=== PATIENT | female | born 1965 | race Two or more races ===

== ENCOUNTER → 2017-07-01 | Outpatient (CLI) | payer OTHER ==
--- NOTE | 2017-07-01 14:18 | MM ---
Reason for exam: additional evaluation requested from prior study. Last mammogram was performed 1 year and 1 month ago. History: Benign MG stereo VAD BX addl RT of the right breast, June 10, 2016. Benign MG stereo VAD BX RT of the right breast, June 10, 2016. Benign US biopsy breast VAD RT of the right breast, June 10, 2016. Benign excisional biopsy of the right breast, August 2009. Benign US right guided mammotome of the right breast, August 15, 2008. Physical Findings: Nurse did not find any significant physical abnormalities on exam. MG Diagnostic Mammo w CAD JAVIER Bilateral CC and MLO view(s) were taken. Prior study comparison: June 10, 2016, right breast MG diagnostic mammo RT wo CAD. May 02, 2016, bilateral MG diagnostic mammo w CAD JAVIER. January 20, 2015, bilateral MG diagnostic mammo w CAD JAVIER. Finding: There are typically benign round calcifications in both breasts. Previous mammotome biopsy in the right breast x 4. There is a chronic nodularity in the left breast. There is no dominant lesion. These results were verbally communicated with the patient and result sheet given to the patient on 07/01/17. ASSESSMENT: Benign, BI-RAD 2 RECOMMENDATION: Routine screening mammogram of both breasts in 1 year. Manage on a clinical basis with regard to pain.
== END ==
LOC: RADMAMWWP 13:09
PROVIDERS: ATTEND Family Medicine
DX: R92.8 Other abnormal and inconclusive findings on diagnostic imaging of breast (principal)

== ENCOUNTER 2018-01-17 18:16 | Emergency (ER) | payer OTHER ==
[2018-01-17 18:32] VITALS: BP 157/83; PULSE 71; RESP 16; TEMP 97.9
--- NOTE | 2018-01-17 20:14 | US ---
EXAMINATION TYPE: US venous doppler duplex LE RT DATE OF EXAM: 01/17/2018 7:59 PM COMPARISON: NONE CLINICAL HISTORY: Pain. Right leg pain, right knee extending into lateral lower leg SIDE PERFORMED: right TECHNIQUE: The lower extremity deep venous system is examined utilizing real time linear array sonog felton with graded compression, doppler sonography and color-flow sonography. VESSELS IMAGED: External Iliac Vein (EIV) Common Femoral Vein Deep Femoral Vein Greater Saphenous Vein * Femoral Vein Popliteal Vein Small Saphenous Vein * Proximal Calf Veins (* superficial vessels) FINDINGS: Grayscale, color doppler, spectral doppler imaging performed of the deep veins of the lower extremities. There is normal flow, compressibility, vascular waveforms. IMPRESSION: NEGATIVE FOR DVT, RIGHT LOWER EXTREMITY.
--- NOTE | 2018-01-17 20:25 | XR ---
PROCEDURE: XR knee complete RT 3 views DATE AND TIME: 01/17/2018 7:35 PM REFERRING PHYSICIAN: Tonny Ryan CLINICAL INDICATION: PHH, Pain TECHNIQUE: Department protocol. COMPARISON: None FINDINGS: There is no fracture or malalignment. The soft tissues are unremarkable. IMPRESSION: NO ACUTE PROCESS.
--- NOTE | 2018-01-17 20:51 | ED ---
General Adult HPI - General Chief complaint: Extremity Problem,Nontraumatic Stated complaint: Leg pain Time Seen by Provider: 01/17/18 18:47 Source: patient, RN notes reviewed Mode of arrival: ambulatory Limitations: no limitations - History of Present Illness Initial comments: 52-year-old female presents to the emergency department for a chief complaint of right leg pain 2 weeks. Patient states she did not injure it. Patient states she has been to her primary care provider for this one week ago and he thought it was related to vein problems. Patient does have compression stockings at home that she does not wear. Patient states the pain was worse tonight. Patient states the pain is behind her knee and calf. Patient states she does have a history of arthritis in that knee. Patient denies pain in the foot or hip. Patient has no other complaints at this time including shortness of breath, chest pain, abdominal pain, nausea or vomiting, headache, or visual changes. - Related Data Home Medications Medication Instructions Recorded Confirmed Butalb/Acetaminophen/Caffeine 1 tab PO DAILY 04/13/14 04/20/14 [Fioricet 50-325-40 mg Tablet] Lisinopril [Zestril] 10 mg PO DAILY 04/13/14 04/20/14 Simvastatin [Zocor] 40 mg PO HS 04/13/14 04/20/14 Penicillin V Potassium [Pen Vee K] 500 mg PO QID 04/20/14 04/20/14 Previous Rx's Medication Instructions Recorded Acetaminophen [Tylenol] 500 mg PO Q4-6H PRN #20 tab 01/17/18 Ibuprofen [Motrin] 600 mg PO Q8HR PRN #20 tab 01/17/18 Allergies Allergy/AdvReac Type Severity Reaction Status Date / Time sumatriptan [From Imitrex] Allergy Severe Unknown Verified 01/17/18 18:32 sumatriptan succinate Allergy Severe Unknown Verified 01/17/18 18:32 [From Imitrex] topiramate [From Topamax] Allergy Severe Unknown Verified 01/17/18 18:32 Review of Systems ROS Statement: Those systems with pertinent positive or pertinent negative responses have been documented in the HPI. ROS Other: All systems not noted in ROS Statement are negative. Past Medical History Past Medical History: Fibromyalgia, Hyperlipidemia, Hypertension Additional Past Medical History / Comment(s): MIGRAINES, SCOLIOSIS, History of Any Multi-Drug Resistant Organisms: None Reported Past Surgical History: No Surgical Hx Reported Additional Past Surgical History / Comment(s): dental surgery 04-15-14 (implants) Past Anesthesia/Blood Transfusion Reactions: No Reported Reaction Past Psychological History: No Psychological Hx Reported Smoking Status: Never smoker Past Alcohol Use History: Occasional Past Drug Use History: None Reported - Past Family History Father Family Medical History: Cancer General Exam Limitations: no limitations General appearance: alert, in no apparent distress Head exam: Present: atraumatic, normocephalic, normal inspection Neck exam: Present: normal inspection, full ROM. Absent: tenderness, meningismus, lymphadenopathy Respiratory exam: Present: normal lung sounds bilaterally. Absent: respiratory distress, wheezes, rales, rhonchi, stridor Cardiovascular Exam: Present: regular rate, normal rhythm, normal heart sounds. Absent: systolic murmur, diastolic murmur, rubs, gallop, clicks Extremities exam: Present: full ROM (Full range of motion of the right lower extremity including the hip and knee and ankle.), tenderness (Tenderness in the lateral posterior right knee. Tenderness in the posterior right calf.), normal capillary refill (Normal capillary refill less than 2 seconds in the right lower extremity. Pedal pulse and PT pulse 2+), other (No Washington's cyst palpated behind the right knee. No lacerations or skin defects. No signs of infection in the right lower extremity.). Absent: joint swelling (No swelling noted in the posterior right knee or right calf.), calf tenderness (No tenderness, redness, swelling, increased warmth in the right calf.) Course Vital Signs 01/17/18 18:27 Temperature 97.9 F Pulse Rate 71 Respiratory 16 Rate Blood Pressure 157/83 O2 Sat by Pulse 100 Oximetry Medical Decision Making - Medical Decision Making 52-year-old female presents to the emergency department for a chief complaint of right lower extremity pain 2 weeks. Patient has pain is behind her knee and calf. Patient saw primary care for this and he believes it is related to vein problems. Patient has an appointment at the [facility] next week. Patient has compression stockings that she has not been wearing. No injuries. On exam patient has pain in the posterior lateral right knee and calf. No increased redness swelling or warmth noted in the right lower extremity. Neurovascular intact. Patient has strong pulses in the right lower extremity. X-ray demonstrates no acute fractures or dislocations. Ultrasound shows no evidence for DVT. This is likely related to either a muscular problem or a venous problem. Patient is to keep her appointment with the [facility]. She is to take Motrin and Tylenol for pain and rest ice and elevate the leg. Patient denies any chance of . She will follow up with primary care in 1-2 days. She will return to the emergency Department if she has any worsening symptoms. Disposition Clinical Impression: Leg pain, right Disposition: HOME SELF-CARE Condition: Good Instructions: Knee Pain (ED), Leg Pain (ED) Additional Instructions: Please take Motrin and Tylenol for pain. Rest, ice, and elevate the leg. Wear your compression stockings. Follow-up with [facility] as directed by primary care provider. If symptoms worsen return to the emergency department. Otherwise follow-up with primary care in 1-2 days. Prescriptions: Acetaminophen [Tylenol] 500 mg PO Q4-6H PRN #20 tab PRN Reason: Pain Ibuprofen [Motrin] 600 mg PO Q8HR PRN #20 tab PRN Reason: Pain Is patient prescribed a controlled substance at d/c from ED?: No Referrals: Awilda Bonilla DO [Primary Care Provider] - 1-2 days Time of Disposition: 20:51
== END 2018-01-17 21:02 | disposition home or self-care (01) ==
LOC: EC 18:16
DX: M79.604 Pain in right leg (principal); E78.5 Hyperlipidemia, unspecified; I10 Essential (primary) hypertension; G43.909 Migraine, unspecified, not intractable, without status migrainosus; M79.7 Fibromyalgia; Z79.891 Long term (current) use of opiate analgesic; Z79.899 Other long term (current) drug therapy; Z88.8 Allergy status to other drugs, medicaments and biological substances
CPT/HCPCS: 99284

== ENCOUNTER → 2018-10-21 | Outpatient (CLI) | payer OTHER ==
--- NOTE | 2018-10-23 09:08 | MM ---
Reason for exam: screening (asymptomatic). Last mammogram was performed 1 year and 4 months ago. History: Family history of breast cancer in sister at age 45. Benign MG stereo VAD BX addl RT of the right breast, June 10, 2016. Benign MG stereo VAD BX RT of the right breast, June 10, 2016. Benign US biopsy breast VAD RT of the right breast, June 10, 2016. Benign excisional biopsy of the right breast, August 2009. Benign US right guided mammotome of the right breast, August 15, 2008. Physical Findings: A clinical breast exam by your physician is recommended on an annual basis and results should be correlated with mammographic findings. MG Screening Mammo w CAD Bilateral CC and MLO view(s) were taken. Prior study comparison: July 01, 2017, bilateral MG diagnostic mammo w CAD JAVIER. June 10, 2016, right breast MG diagnostic mammo RT wo CAD. The breast tissue is heterogeneously dense. This may lower the sensitivity of mammography. Previous mammotome biopsy in the right breast x 3. No significant changes when compared with prior studies. ASSESSMENT: Negative, BI-RAD 1 RECOMMENDATION: Routine screening mammogram of both breasts in 1 year. Manage on a clinical basis with regard to left lateral breast tenderness.
== END ==
LOC: RADMAMWWP 09:03
PROVIDERS: ATTEND Family Medicine
DX: Z12.31 Encounter for screening mammogram for malignant neoplasm of breast (principal); Z80.3 Family history of malignant neoplasm of breast
CPT/HCPCS: 77067

== ENCOUNTER 2020-02-05 13:48 | Emergency (ER) | payer OTHER ==
[2020-02-05 13:59] VITALS: RESP 18
[2020-02-05] MEDS ORDERED: SODIUM CHLORIDE 0.9% 1,000 ML IV STA ×2 (14:03)
[2020-02-05] MEDS ORDERED: SODIUM CHLORIDE 0.9% 500 ML 500 ML IV STA (14:03)
--- NOTE | 2020-02-05 14:24 | ED ---
Abdominal Pain HPI - General Chief Complaint: Abdominal Pain Stated Complaint: bowel obstruction Time Seen by Provider: 02/05/20 14:02 Source: patient Mode of arrival: ambulatory Limitations: no limitations - History of Present Illness Initial Comments: 54yo female sent by primary care provider to rule out obstruction. Patient states that she has had abdominal pain since Friday which she states she feels distended and has nausea. Patient states initially began Friday as left lower quadrant abdominal pain patient is placed on Cipro and Flagyl at her PCP appointment Friday denied fevers, diarrhea at that time states she was constipated and hadnt had a bowel movement in 3 days. Patient had an XR and was told to take laxatives, patient states she has been taking laxatives and having a large amount of loose stool-- she states that she continues to feel extremely bloated and everytime she eats she feels to full and has burping. Patient now states that the pain is increased is diffuse over the abdomen but stiff mostly at the LLQ. She presented yesterday and was told that is she continues to feels nauseated or pain increases to come to the ER. Patient states that the pain and nausea has been increasing and that is why she presented to the ER today. Upon arrival patient appears uncomfortable. - Related Data Home Medications Medication Instructions Recorded Confirmed Butalb/Acetaminophen/Caffeine 1 tab PO DAILY 04/13/14 04/20/14 [Fioricet 50-325-40 mg Tablet] Lisinopril [Zestril] 10 mg PO DAILY 04/13/14 04/20/14 Simvastatin [Zocor] 40 mg PO HS 04/13/14 04/20/14 Penicillin V Potassium [Pen Vee K] 500 mg PO QID 04/20/14 04/20/14 Previous Rx's Medication Instructions Recorded Acetaminophen [Tylenol] 500 mg PO Q4-6H PRN #20 tab 01/17/18 Ibuprofen [Motrin] 600 mg PO Q8HR PRN #20 tab 01/17/18 Allergies Allergy/AdvReac Type Severity Reaction Status Date / Time sumatriptan [From Imitrex] Allergy Severe Unknown Verified 02/05/20 13:50 sumatriptan succinate Allergy Severe Unknown Verified 02/05/20 13:50 [From Imitrex] topiramate [From Topamax] Allergy Severe Unknown Verified 02/05/20 13:50 azithromycin Allergy Confusion Verified 02/05/20 13:50 Review of Systems ROS Statement: Those systems with pertinent positive or pertinent negative responses have been documented in the HPI. ROS Other: All systems not noted in ROS Statement are negative. Past Medical History Past Medical History: Fibromyalgia, Hyperlipidemia, Hypertension Additional Past Medical History / Comment(s): MIGRAINES, SCOLIOSIS, History of Any Multi-Drug Resistant Organisms: None Reported Past Surgical History: No Surgical Hx Reported Additional Past Surgical History / Comment(s): dental surgery 04-15-14 (implants) Past Anesthesia/Blood Transfusion Reactions: No Reported Reaction Past Psychological History: No Psychological Hx Reported Smoking Status: Never smoker Past Alcohol Use History: Occasional Past Drug Use History: None Reported - Past Family History Father Family Medical History: Cancer General Exam - General Exam Comments Initial Comments: General: The patient is awake and alert, in no distress Eye: +3 mm pupils are equal, round and reactive to light, extra-ocular movements are intact. No nystagmus. There is normal conjunctiva bilaterally. No signs of icterus. Cardiovascular: There is a regular rate and rhythm. No murmur, rub or gallop is appreciated. Respiratory: Lungs are clear to auscultation, respirations are non-labored, breath sounds are equal. No wheezes, stridor, rales, or rhonchi. Gastrointestinal: Soft, non-distended, LLQ tenderness to palpation of the abdomen without masses or organomegaly noted. There is no rebound or guarding present. Musculoskeletal: Normal ROM, no tenderness. Strength 5/5. Sensation intact. Radial pulses equal bilaterally 2+. Neurological: A&O x 3. CN II-XII intact grossly, There are no obvious motor or sensory deficits. Coordination appears grossly intact. Speech is normal. Skin: Skin is warm and dry and no rashes or lesions are noted. Psychiatric: Cooperative, appropriate mood & affect, normal judgment. Limitations: no limitations Course Vital Signs 02/05/20 13:51 Temperature 98.2 F Pulse Rate 105 H Respiratory 18 Rate Blood Pressure 144/92 O2 Sat by Pulse 98 Oximetry Medical Decision Making - Medical Decision Making Labs stable. Mild diverticulitis, has only taken 1 day of medications. Patient appears nontoxic. Complaining of nausea with antibiotics will treat with zofran outpatient. Paitent will now be placed on augmentin and instructed to f/u with PCP on Friday as scheduled and is to return to the ER if symptoms worsen. D iscussed incidental finding of increased endometrial stripe and recommended OBGYN f/u. Patient is agreeable to care plan and discharge at this time. Bull wetzel is agreeable to discharge of patient with change of antibiotics/fu and return parameters. - Lab Data Result diagrams: 02/05/20 14:20 02/05/20 14:20 Lab Results 02/05/20 02/05/20 02/05/20 Range/Units 14:20 14:20 14:20 WBC 8.0 (3.8-10.6) k/uL RBC 5.00 (3.80-5.40) m/uL Hgb 14.1 (11.4-16.0) gm/dL Hct 44.4 (34.0-46.0) % MCV 88.7 (80.0-100.0) fL MCH 28.1 (25.0-35.0) pg MCHC 31.7 (31.0-37.0) g/dL RDW 13.0 (11.5-15.5) % Plt Count 307 (150-450) k/uL Neutrophils % 50 % Lymphocytes % 41 % Monocytes % 4 % Eosinophils % 2 % Basophils % 1 % Neutrophils # 4.0 (1.3-7.7) k/uL Lymphocytes # 3.2 (1.0-4.8) k/uL Monocytes # 0.3 (0-1.0) k/uL Eosinophils # 0.2 (0-0.7) k/uL Basophils # 0.1 (0-0.2) k/uL Sodium 137 (137-145) mmol/L Potassium 4.3 (3.5-5.1) mmol/L Chloride 104 (98-107) mmol/L Carbon Dioxide 23 (22-30) mmol/L Anion Gap 10 mmol/L BUN 11 (7-17) mg/dL Creatinine 0.70 (0.52-1.04) mg/dL Est GFR (CKD-EPI)AfAm >90 (>60 ml/min/1.73 sqM) Est GFR (CKD-EPI)NonAf >90 (>60 ml/min/1.73 sqM) Glucose 106 H (74-99) mg/dL Plasma Lactic Acid Clay 1.2 (0.7-2.0) mmol/L Calcium 10.1 (8.4-10.2) mg/dL Total Bilirubin 0.6 (0.2-1.3) mg/dL AST 72 H (14-36) U/L ALT 77 H (4-34) U/L Alkaline Phosphatase 156 H (38-126) U/L Total Protein 8.0 (6.3-8.2) g/dL Albumin 4.6 (3.5-5.0) g/dL Amylase 62 (30-110) U/L Lipase 140 (23-300) U/L Urine Color Urine Appearance (Clear) Urine pH (5.0-8.0) Ur Specific [place] (1.001-1.035) Urine Protein (Negative) Urine Glucose (UA) (Negative) Urine Ketones (Negative) Urine Blood (Negative) Urine Nitrite (Negative) Urine Bilirubin (Negative) Urine Urobilinogen (<2.0) mg/dL Ur Leukocyte Esterase (Negative) 02/05/20 Range/Units 15:32 WBC (3.8-10.6) k/uL RBC (3.80-5.40) m/uL Hgb (11.4-16.0) gm/dL Hct (34.0-46.0) % MCV (80.0-100.0) fL MCH (25.0-35.0) pg MCHC (31.0-37.0) g/dL RDW (11.5-15.5) % Plt Count (150-450) k/uL Neutrophils % % Lymphocytes % % Monocytes % % Eosinophils % % Basophils % % Neutrophils # (1.3-7.7) k/uL Lymphocytes # (1.0-4.8) k/uL Monocytes # (0-1.0) k/uL Eosinophils # (0-0.7) k/uL Basophils # (0-0.2) k/uL Sodium (137-145) mmol/L Potassium (3.5-5.1) mmol/L Chloride (98-107) mmol/L Carbon Dioxide (22-30) mmol/L Anion Gap mmol/L BUN (7-17) mg/dL Creatinine (0.52-1.04) mg/dL Est GFR (CKD-EPI)AfAm (>60 ml/min/1.73 sqM) Est GFR (CKD-EPI)NonAf (>60 ml/min/1.73 sqM) Glucose (74-99) mg/dL Plasma Lactic Acid Clay (0.7-2.0) mmol/L Calcium (8.4-10.2) mg/dL Total Bilirubin (0.2-1.3) mg/dL AST (14-36) U/L ALT (4-34) U/L Alkaline Phosphatase (38-126) U/L Total Protein (6.3-8.2) g/dL Albumin (3.5-5.0) g/dL Amylase (30-110) U/L Lipase (23-300) U/L Urine Color Yellow Urine Appearance Clear (Clear) Urine pH 7.0 (5.0-8.0) Ur Specific [place] 1.000 L (1.001-1.035) Urine Protein Negative (Negative) Urine Glucose (UA) Negative (Negative) Urine Ketones Negative (Negative) Urine Blood Negative (Negative) Urine Nitrite Negative (Negative) Urine Bilirubin Negative (Negative) Urine Urobilinogen <2.0 (<2.0) mg/dL Ur Leukocyte Esterase Negative (Negative) Disposition Clinical Impression: Diverticulitis, Abdominal pain, Nausea, Elevated AST (SGOT), Elevated ALT measurement, Alkaline phosphatase elevation, Endometrial stripe increased Disposition: HOME SELF-CARE Condition: Good Additional Instructions: Please use medication as discussed. Please follow-up with family doctor in the next 2 days. Return for increasing pain, please follow-up with OBGYN for increased endometrial stripe. Please return to emergency room if the symptoms increase or worsen or for any other concerns. Is patient prescribed a controlled substance at d/c from ED?: No Referrals: Awilda Bonilla DO [Primary Care Provider] - 1-2 days Time of Disposition: 16:17
[2020-02-05] MEDS ORDERED: SODIUM CHLORIDE 0.9% 500 ML 500 ML IV ONE (14:26)
[2020-02-05 14:36] LABS: Basophils # (A) 0.1 k/uL (0-0.2); Basophils % (A) 1 %; Eosinophils # (A) 0.2 k/uL (0-0.7); Eosinophils % (A) 2 %; HCT 44.4 % (34.0-46.0); HGB 14.1 gm/dL (11.4-16.0); Lymphocytes # (A) 3.2 k/uL (1.0-4.8); Lymphocytes % (A) 41 %; MCH 28.1 pg (25.0-35.0); MCHC 31.7 g/dL (31.0-37.0); MCV 88.7 fL (80.0-100.0); Mean Platelet Volume 7.2; Monocytes # (A) 0.3 k/uL (0-1.0); Monocytes % (A) 4 %; Neutrophils % (A) 50 %; Platelet Count 307 k/uL (150-450)
[2020-02-05 14:55] LABS: ALT 77 U/L (4-34); AST 72 U/L (14-36); African American GFR (CKD) >90 (>60 ml/min/1.73 sqM); Albumin 4.6 g/dL (3.5-5.0); Alkaline Phosphatase 156 U/L (38-126); Amylase 62 U/L (30-110); Anion Gap 10 mmol/L; Blood Urea Nitrogen 11 mg/dL (7-17); Calcium 10.1 mg/dL (8.4-10.2); Carbon Dioxide 23 mmol/L (22-30); Chloride 104 mmol/L (98-107); Glucose 106 mg/dL (74-99); Non-African American GFR(CKD) >90 (>60 ml/min/1.73 sqM); Potassium 4.3 mmol/L (3.5-5.1); Sodium 137 mmol/L (137-145); Total Bilirubin 0.6 mg/dL (0.2-1.3)
--- NOTE | 2020-02-05 15:43 | CT ---
EXAMINATION TYPE: CT abdomen pelvis w con DATE OF EXAM: 02/05/2020 COMPARISON: NONE HISTORY: 54-year-old female Abdominal pain and bloating TECHNIQUE: Contiguous axial scanning of the abdomen and pelvis following administration of 100 ml Iso tasha 300 IV contrast. Delayed images through the kidneys and coronal/sagittal reconstructions perform ed. CT DLP: 786 mGycm Automated exposure control for dose reduction was used. FINDINGS: Heart upper limits of normal in size without pericardial effusion. Mild dependent atelectasis at the lung bases. No pleural effusion. No focal liver lesion or biliary ductal dilatation. Portal venous system is patent. Gallbladder, adrenal glands, kidneys, spleen, pancreas appear within normal limits. Moderate atherosclerotic calcifications abdominal aorta and common iliac arteries without aneurysm. No dilated small bowel, free fluid, or free air. No mesenteric or retroperitoneal lymphadenopathy. Sc attered mild stool. Normal appendix. Lower descending and proximal sigmoid diverticulosis. There is mild pericolic fat st randing and possible mild wall thickening along the lower descending colon, axial images 46 through 4 8. Bladder is urine distended. Uterus anteverted. Endometrial stripe may measure up to 1.0 cm, sagittal image 74. Left-sided pelvic phleboliths. Small ovaries are visualized. No abnormal fluid collection t he pelvis or pelvic lymphadenopathy. Bones: Facet arthropathy lower lumbar spine. IMPRESSION: 1. Either some prominent pericolonic vessels versus mild acute diverticulitis along the lower descend ing colon. Clinically correlate. 2. Nonemergent follow-up pelvic ultrasound recommended to exclude abnormal endometrial stripe thicken ing. The stripe may be thickened up to 1.0 cm. Correlate for any postmenopausal bleeding.
[2020-02-05 16:05] LABS: Appearance,Urine Clear (Clear); Bilirubin,Urine Negative (Negative); Blood,Urine Negative (Negative); Color,Urine Yellow; Glucose,Urine (UA) Negative (Negative); Ketones,Urine Negative (Negative); Leukocyte Esterase,Urine Negative (Negative); Nitrite,Urine Negative (Negative); Protein,Urine Negative (Negative); Urobilinogen,Urine <2.0 mg/dL (<2.0)
[2020-02-05 16:16] VITALS: BP 131/98; PULSE 80; TEMP 97.9
== END 2020-02-05 16:46 | disposition home or self-care (01) ==
LOC: EC 13:48
DX: K57.92 Diverticulitis of intestine, part unspecified, without perforation or abscess without bleeding (principal); R74.8 Abnormal levels of other serum enzymes; N85.00 Endometrial hyperplasia, unspecified; I10 Essential (primary) hypertension; E78.5 Hyperlipidemia, unspecified; Z79.899 Other long term (current) drug therapy; Z88.1 Allergy status to other antibiotic agents; Z88.8 Allergy status to other drugs, medicaments and biological substances
CPT/HCPCS: 36415; 80053; 82150; 83605; 83690; 85025; 81003; 87040; 74177; 99284; 96360; Q9967

== ENCOUNTER → 2020-02-24 | Outpatient (CLI) | payer OTHER ==
--- NOTE | 2020-02-24 10:38 | NM ---
EXAMINATION TYPE: NM hepatobiliary w EF DATE OF EXAM: 02/24/2020 COMPARISON: CT 02/05/2020 HISTORY: Right upper quadrant pain TECHNIQUE: After the intravenous administration of 4.89 mCi Tc 99m Mebrofenin hepatobiliary scintigra phy is performed. Immediate images post injection. FINDINGS: There is satisfactory initial accumulation of tracer by the liver. The gallbladder is visualized wit hin 15 minutes. The small bowel activity is noted within 15 minutes. At one hour 8 ounces of oral e nsure plus is given to mimic CCK and gallbladder ejection fraction is calculated at 58 %, in the norm al range. Therefore there is no scintigraphic evidence of cystic or common bile duct obstruction to suggest acute cholecystitis or gallbladder dyskinesia. IMPRESSION: Exam is within normal limits.
== END | disposition home or self-care (01) ==
LOC: RADNMMAIN 06:55
PROVIDERS: ATTEND Physician Assistant
DX: R10.11 Right upper quadrant pain (principal)
CPT/HCPCS: 78226; A9537

== ENCOUNTER 2020-04-12 09:02 | Day surgery (SDC) | payer OTHER ==
[2020-04-07 16:16] VITALS: BMI 25.7
[~2020-04-12 09:02] MED LIST: LACTATED RINGERS 1,000 ML IV SCH; LIDOCAINE 1% (10MG/ML) FOR IV START INTRADERMA PRN
[2020-04-12 09:30] VITALS: TEMP 97.8
[2020-04-12] MEDS ORDERED: LACTATED RINGERS 1,000 ML IV ONE (09:30)
[2020-04-12] MEDS ORDERED: PROPOFOL 10 MG/ML 20 ML VIAL IV ONE (10:02)
[2020-04-12] MEDS ORDERED: LIDOCAINE 1% INJ 10MG/ML (20 ML MDV) ONE (10:02)
--- NOTE | 2020-04-12 10:25 | P.PCN ---
Date of Procedure: 04/12/20 Implants: Brief history: Patient is a pleasant 54-year-old white female scheduled for an elective upper endoscopy as well as colonoscopy as a part of evaluation of GERD and recent episode of acute sigmoid diverticulitis Procedure performed: Esophagogastroduodenoscopy Colonoscopy Preoperative diagnosis: GERD Recent episode of acute sigmoid diverticulitis Anesthesia: [facility] [place] Procedure: After informed consent was obtained from the patient was brought into the endoscopy unit and IV sedation was administered by anesthesia under continuous monitoring. Initially upper endoscopy was done. The Olympus GF 160 video endoscope was inserted inserted into the mouth and esophagus intubated without any difficulty and was gradually advanced into the stomach and duodenum and carefully examined. The bulb and second part of the duodenum appeared normal. The scope was then withdrawn into the stomach adequately insufflated with air and upon careful examination the antrum and body, cardia and fundus appeared normal. The scope was then withdrawn into the esophagus. Small to moderate sliding type hiatal hernia noted. The GE junction was located at 35 cm to the incisors. It appeared regular with no erythema erosions or ulcerations. Rest of the esophagus appeared normal. Patient tolerated the procedure well. At this time the patient continued to remain sedation. Initial digital rectal examination was normal. Olympus CF 160 video colonoscope was then inserted into the rectum and gradually advanced to the cecum without any difficulty. Careful examination was performed as the scope was gradually being withdrawn. The prep was excellent. The cecum, ascending colon, transverse colon, descending colon, sigmoid colon and rectum appeared normal. Scattered diffuse diverticulosis seen. Retroflexion was performed in the rectum and no lesions were noted. Patient tolerated the procedure well. Impression: 1. Upper endoscopy revealed small to moderate sliding type hiatal hernia but no evidence of Rain's esophagus or esophagitis 2. Colonoscopy revealed scattered diffuse diverticulosis but no evidence of colorectal neoplasia Recommendations: Findings of this examination were discussed with the patient as well as a family. She was advised to continue with Prilosec 20 mg daily and follow antireflux measures. She'll be a high-fiber diet and have a repeat screening colonoscopy in 10 years.
[2020-04-12 10:29] VITALS: RESP 16
[2020-04-12 11:00] VITALS: BP 131/96; PULSE 62
== END 2020-04-12 11:18 | disposition home or self-care (01) ==
LOC: ORWHC2ENDO 09:02
PROVIDERS: ATTEND Internal Medicine Gastroenterology
DX: K21.9 Gastro-esophageal reflux disease without esophagitis (principal); K44.9 Diaphragmatic hernia without obstruction or gangrene; K57.32 Diverticulitis of large intestine without perforation or abscess without bleeding; Z88.1 Allergy status to other antibiotic agents; Z88.8 Allergy status to other drugs, medicaments and biological substances; I10 Essential (primary) hypertension; E78.5 Hyperlipidemia, unspecified; M79.7 Fibromyalgia; G43.909 Migraine, unspecified, not intractable, without status migrainosus; Z79.899 Other long term (current) drug therapy
CPT/HCPCS: 45378; 43235; J2001; J2704